=== PATIENT | female | born 1975 | race Caucasian/White ===

== ENCOUNTER → 2022-09-07 | Outpatient (CLI) | payer MEDICAID ==
--- NOTE | 2022-09-07 15:16 | MR ---
EXAMINATION TYPE: MR brain wo/w con DATE OF EXAM: 09/07/2022 7:25 AM CLINICAL INDICATION:Female, 47 years old with history of R51.9,G43.809, G43.109; COMPARISON: None TECHNIQUE: Multi planar, multi sequence imaging was performed through the brain including: T1, T2, In version recovery, susceptibility weighted imaging and gradient echo imaging and Diffusion weighted im aging. The patient was then given intravenous contrast and multi planar, T1 fat-saturation images wer e obtained. IV Contrast: 10 cc Gadavist FINDINGS: The ortega-white junctions, ventricular system, basal cisterns appear unremarkable. Diffusion-weighted imaging shows no evidence of restricted diffusion to suggest acute/subacute infarct. Intracranial art erial flow voids are maintained. Midline structures show no abnormality. The susceptibility weighted images demonstrate blooming artifact within the right thalamus with prior microhemorrhage. After admi nistration of gadolinium, no abnormal enhancement is seen. The bone marrow signal is within normal limits. Paranasal sinuses and mastoid air cells: Moderate scattered paranasal sinus disease with retention in the maxillary sinuses bilaterally. Visualized orbits: Orbital contents are intact. IMPRESSION: 1. No evidence of intracranial mass, acute/subacute infarct, or abnormal enhancement. 2. Moderate paranasal sinus and maxillary sinuses.
== END | disposition home or self-care (01) ==
LOC: RADMRIMAIN 06:34
PROVIDERS: ATTEND Family Medicine
DX: G43.109 Migraine with aura, not intractable, without status migrainosus (principal); J32.8 Other chronic sinusitis; J32.0 Chronic maxillary sinusitis
CPT/HCPCS: 70553; A9585